=== PATIENT | male | born 1960 | race Caucasian/White ===

== ENCOUNTER → 2021-05-16 | Outpatient (CLI) | payer BC ==
--- NOTE | 2021-05-16 10:21 | US ---
EXAMINATION TYPE: US prostate transrectal DATE OF EXAM: 05/16/2021 COMPARISON: NONE CLINICAL HISTORY: R97.20 Elevated prostate specific antigen. Elevated PSA, PSA levels not on pt's ord er and pt unaware of PSA levels This examination was performed using the transrectal probe. EXAM MEASUREMENTS: Gland Size: 5.1 x 3.8 x 4.3 cm Volume: 43 ml Predicted PSA: 5.2 Actual PSA (if available):Not available Heterogeneous central zone of prostate, peripheral zone appeared wnl Seminal vesicles within normal limits towards end of study. Heterogeneous enlarged prostate with cent ral calcifications. No discrete hypoechoic nodule. IMPRESSION: Enlarged prostate consistent with BPH. No suspicious nodules. Correlate clinically and w ith actual PSA value. Predicted PSA = volume x 0.12 ng/ml Calculated Volume = 0.5236 x L x W x H
== END ==
LOC: RADUSWWP 07:22
PROVIDERS: ATTEND Family Medicine
DX: N40.0 Benign prostatic hyperplasia without lower urinary tract symptoms (principal)
CPT/HCPCS: 76872